=== PATIENT | female | born 1995 | race African-American/Black ===

== ENCOUNTER 2019-04-16 12:40 | Emergency (ER) | payer OTHER, MEDICAID ==
[~2019-04-16] VITALS: Ht 160 cm; Wt 107.5 kg
[2019-04-16 13:52] LABS: Basophils # (auto) 0 uL; Eosinophils # (auto) 0.1 uL; Mean Corpuscular Volume 65.4 fL (80.0-100.0); Neutrophils # (auto) 3.4 uL; Nucleated Red Blood Cells % 0.1 %
[2019-04-16 13:53] LABS: Basophils % (auto) 0.4 % (0.0-2.0); Eosinophils % (auto) 2.2 % (0.0-7.0); Lymphocytes # (auto) 0.9 uL; Lymphocytes % (auto) 18.8 % (10.0-50.0); Mean Corpuscular Hemoglobin 20.5 pg (28.0-32.0); Mean Corpuscular Hgb Conc. 31.4 g/dL (32.0-36.0); Monocytes # (auto) 0.3 uL; Monocytes % (auto) 7.2 % (0.0-12.0); Neutrophils % (auto) 71.4 % (37.0-80.0); Platelet Count (auto) 258 10^3/uL (140-450); Red Blood Cells 4.89 10^6/uL (4.0-5.20); White Blood Cell 4.7 10^3/uL (4.4-10.8)
[2019-04-16 14:10] LABS: Albumin 2.9 g/dL (3.4-5.0); BUN/Creatinine Ratio 6.6; Calcium 8.5 mg/dL (8.5-10.1); Potassium 3.5 mmol/L (3.5-5.1)
[2019-04-16 14:13] LABS: Bilirubin, Total 0.3 mg/dL (0.2-1.0); Total Protein 7.8 g/dL (6.4-8.2)
[2019-04-16 16:47] VITALS: BP 144/69
[2019-04-16] MEDS ORDERED: ACETAMINOPHEN 325 MG TAB PO ONE (18:45)
[2019-04-16] MEDS ORDERED: cefTRIAXone W LIDOCAINE 1 GM IM IM ONE (18:45)
[2019-04-16] MEDS ORDERED: cefTRIAXone SOD 1,000 MG VL ONE (19:02)
== END 2019-04-16 19:11 | disposition home or self-care (01) ==
LOC: ER 12:40
DX: L03.116 Cellulitis of left lower limb (principal); Z91.018 Allergy to other foods
CPT/HCPCS: 36415; 80053; 83605; 85025; 87040; 96372; 99283; J0696

== ENCOUNTER 2019-05-06 14:55 | Observation (INO) | payer OTHER, MEDICAID ==
[~2019-05-06] VITALS: Ht 162.6 cm; Wt 110.2 kg
[2019-05-06] MEDS ORDERED: LACTATED RINGER'S 2,000 ML IV ONE (15:30)
[2019-05-06] MEDS ORDERED: ONDANSETRON HCL 4 MG/2 ML VIAL IV PRN (15:30)
[2019-05-06] MEDS ORDERED: ACETAMINOPHEN 325 MG TAB PO PRN (15:30)
[2019-05-06] MEDS ORDERED: LACTATED RINGER'S 1,000 ML IV ONE ×2 (16:30→18:15)
== END 2019-05-06 19:17 | disposition home or self-care (01) | DRG 833 ==
LOC: LDRP 14:55
PROVIDERS: ADMIT Specialist; ATTEND Specialist
DX: O21.0 Mild hyperemesis gravidarum (principal); O26.892 Other specified pregnancy related conditions, second trimester; R10.9 Unspecified abdominal pain; R51 Headache; R05 Cough; Z3A.20 20 weeks gestation of pregnancy
CPT/HCPCS: 59025; 81002; 96361; 96374; G0378; J2405; 96375